=== PATIENT | female | born 1975 | race Caucasian/White ===

== ENCOUNTER 2018-01-09 12:38 | Outpatient (CLI) | payer OTHER ==
[~2018-01-09] VITALS: Ht 172.7 cm; Wt 102.5 kg
[2018-01-09] MEDS ORDERED: BUPR150T9 PO (12:52)
[2018-01-09] MEDS ORDERED: ARIP2TAB3 PO (12:52)
[2018-01-09 12:55] VITALS: BP 114/71
[2018-01-09 13:32] LABS: BASOPHILS % (AUTO) 1 % (0-10); EOSINOPHILS # (AUTO) 0.2 10^3/uL (0.0-0.3); EOSINOPHILS % (AUTO) 3 % (0-10); HEMATOCRIT 37 % (35-52); HEMOGLOBIN 12.5 G/DL (11.5-16.0); LYMPHOCYTES # (AUTO) 1.7 X 10^3 (1.0-4.0); LYMPHOCYTES % (AUTO) 22 % (12-44); MEAN CORPUSCULAR HEMOGLOBIN 30 PG (25-34); MEAN CORPUSCULAR HGB CONC 34 G/DL (32-36); MEAN CORPUSCULAR VOLUME 89 FL (80-99); MEAN PLATELET VOLUME 9.5 FL (7.4-10.4); MONOCYTES # (AUTO) 0.6 X 10^3 (0.0-1.0); MONOCYTES % (AUTO) 7 % (0-12); NEUTROPHILS # (AUTO) 5.2 X 10^3 (1.8-7.8); NEUTROPHILS % (AUTO) 67 % (42-75); PLATELET COUNT 372 10^3/uL (130-400); RED BLOOD COUNT 4.11 10^6/uL (4.35-5.85); RED CELL DISTRIBUTION WIDTH 13.5 % (10.0-14.5); WHITE BLOOD COUNT 7.8 10^3/uL (4.3-11.0)
[2018-01-13] MEDS ORDERED: OXYC-465 PO (13:27)
[2018-01-13] MEDS ORDERED: IBUP-1780 PO (13:27)
[2018-01-13] MEDS ORDERED: DOCU-143 PO (13:27)
== END 2018-01-09 15:47 | disposition home or self-care (01) ==
LOC: PREOP 12:38
PROVIDERS: ATTEND Obstetrics & Gynecology
DX: Z01.812 Encounter for preprocedural laboratory examination (principal); Z11.2 Encounter for screening for other bacterial diseases; N93.8 Other specified abnormal uterine and vaginal bleeding; N92.0 Excessive and frequent menstruation with regular cycle; R10.2 Pelvic and perineal pain; D64.9 Anemia, unspecified; R32 Unspecified urinary incontinence
CPT/HCPCS: 36415; 85025; 86850; 86900; 86901; 87081

== ENCOUNTER 2018-01-13 09:22 | Day surgery (SDC) | payer OTHER ==
[~2018-01-13] VITALS: Ht 172.7 cm; Wt 102.5 kg
[~2018-01-13 09:22] MED LIST: ARIP2TAB3 PO; BUPR150T9 PO
--- OUTSIDE RECORDS SUMMARY | 2018-01-13 09:28 | XMS REPORT | Continuity of Care Document ---
Author Author [facility] Address Unknown Phone Unavailable Allergies Active Description Code Type Severity Reaction Onset Reported/Identified Relationship to Patient Clinical Status Yes No Known Drug Allergies [id number] Drug Allergy Unknown N/A 01/09/2018 Medications There is no data. Problems Date Dx Coded Attending Type Code Diagnosis Diagnosed By 04/03/2008 300.00 AN ANXIETY UNSPEC 04/03/2008 311 MO DEPRESSIVE DISORDER NOS 04/03/2008 300.00 AN ANXIETY UNSPEC 04/03/2008 311 MO DEPRESSIVE DISORDER NOS 04/03/2008 300.00 AN ANXIETY UNSPEC 04/03/2008 311 MO DEPRESSIVE DISORDER NOS 04/03/2008 300.00 AN ANXIETY UNSPEC 04/03/2008 311 MO DEPRESSIVE DISORDER NOS 04/03/2008 JAZMINE ENAMORADO APRN 300.00 AN ANXIETY UNSPEC 04/03/2008 JAZMINE ENAMORADO APRN 311 MO DEPRESSIVE DISORDER NOS 04/03/2008 ADRIANA VALENCIA DO 300.00 AN ANXIETY UNSPEC 04/03/2008 ADRIANA VALENCIA DO 311 MO DEPRESSIVE DISORDER NOS 04/03/2008 300.00 AN ANXIETY UNSPEC 04/03/2008 311 MO DEPRESSIVE DISORDER NOS 04/10/2009 V05.3 HEPATITIS VIRAL/ALL 04/10/2009 V06.4 MMR, MEASLES- MUMPS-RUBELLA VAC 04/10/2009 V05.3 HEPATITIS VIRAL/ALL 04/10/2009 V06.4 MMR, MEASLES- MUMPS-RUBELLA VAC 04/10/2009 V05.3 HEPATITIS VIRAL/ALL 04/10/2009 V06.4 MMR, MEASLES- MUMPS-RUBELLA VAC 04/10/2009 V05.3 HEPATITIS VIRAL/ALL 04/10/2009 V06.4 MMR, MEASLES- MUMPS-RUBELLA VAC 04/10/2009 JAZMINE ENAMORADO APRN V05.3 HEPATITIS VIRAL/ALL 04/10/2009 JAZMINE ENAMORADO APRN V06.4 MMR, YNHYMPC-[id number]-IUBJJCK VAC 04/10/2009 ADRIANA VALENCIA DO V05.3 HEPATITIS VIRAL/ALL 04/10/2009 ADRIANA VALENCIA DO V06.4 MMR, IABMMTC-WCGRR-QNHFEYU VAC 04/10/2009 V05.3 HEPATITIS VIRAL/ALL 04/10/2009 V06.4 MMR, MEASLES- MUMPS-RUBELLA VAC 07/08/2010 789.00 ABDOMINAL PAIN UNSPECIFIED SITE 07/08/2010 789.00 ABDOMINAL PAIN UNSPECIFIED SITE 07/08/2010 789.00 ABDOMINAL PAIN UNSPECIFIED SITE 07/08/2010 789.00 ABDOMINAL PAIN UNSPECIFIED SITE 07/08/2010 JAZMINE ENAMORADO APRN 789.00 ABDOMINAL PAIN UNSPECIFIED SITE 07/08/2010 ADRIANA VALENCIA DO 789.00 ABDOMINAL PAIN UNSPECIFIED SITE 07/08/2010 789.00 ABDOMINAL PAIN UNSPECIFIED SITE 11/27/2010 V72.31 NATUROPATHIC DOCTOR EXAM, ROUTINE 11/27/2010 V72.31 NATUROPATHIC DOCTOR EXAM, ROUTINE 11/27/2010 V72.31 NATUROPATHIC DOCTOR EXAM, ROUTINE 11/27/2010 V72.31 NATUROPATHIC DOCTOR EXAM, ROUTINE 11/27/2010 JAZMINE ENAMORADO APRN V72.31 NATUROPATHIC DOCTOR EXAM, ROUTINE 11/27/2010 ADRIANA VALENCIA DO V72.31 NATUROPATHIC DOCTOR EXAM, ROUTINE 11/27/2010 V72.31 NATUROPATHIC DOCTOR EXAM, ROUTINE 12/21/2010 477.9 RHINITIS 12/21/2010 477.9 RHINITIS 12/21/2010 477.9 RHINITIS 12/21/2010 477.9 RHINITIS 12/21/2010 JAZMINE ENAMORADO APRN 477.9 RHINITIS 12/21/2010 ADRIANA VALENCIA DO 477.9 RHINITIS 12/21/2010 477.9 RHINITIS 03/19/2011 724.4 THORACIC OR LUMBOSACRAL NEURITIS OR RADICULITIS UNSPECIFIED 03/19/2011 724.4 THORACIC OR LUMBOSACRAL NEURITIS OR RADICULITIS UNSPECIFIED 03/19/2011 724.4 THORACIC OR LUMBOSACRAL NEURITIS OR RADICULITIS UNSPECIFIED 03/19/2011 724.4 THORACIC OR LUMBOSACRAL NEURITIS OR RADICULITIS UNSPECIFIED 03/19/2011 JAZMINE ENAMORADO APRN 724.4 THORACIC OR LUMBOSACRAL NEURITIS OR RADICULITIS UNSPECIFIED 03/19/2011 ADRIANA VALENCIA DO 724.4 THORACIC OR LUMBOSACRAL NEURITIS OR RADICULITIS UNSPECIFIED 03/19/2011 724.4 THORACIC OR LUMBOSACRAL NEURITIS OR RADICULITIS UNSPECIFIED 01/26/2012 911.5 INSECT BITE NONVENOMOUS OF TRUNK INFECTED 01/26/2012 911.5 INSECT BITE NONVENOMOUS OF TRUNK INFECTED 01/26/2012 911.5 INSECT BITE NONVENOMOUS OF TRUNK INFECTED 01/26/2012 911.5 INSECT BITE NONVENOMOUS OF TRUNK INFECTED 01/26/2012 JAZMINE ENMAORADO APRN 911.5 INSECT BITE NONVENOMOUS OF TRUNK INFECTED 01/26/2012 ADRIANA VALENCIA DO 911.5 INSECT BITE NONVENOMOUS OF TRUNK INFECTED 01/26/2012 911.5 INSECT BITE NONVENOMOUS OF TRUNK INFECTED 03/01/2012 486 PNEUMONIA ORGANISM UNSPECIFIED 03/01/2012 486 PNEUMONIA ORGANISM UNSPECIFIED 03/01/2012 486 PNEUMONIA ORGANISM UNSPECIFIED 03/01/2012 486 PNEUMONIA ORGANISM UNSPECIFIED 03/01/2012 JAZMINE ENAMORADO APRN 486 PNEUMONIA ORGANISM UNSPECIFIED 03/01/2012 ADRIANA VALENCIA DO 486 PNEUMONIA ORGANISM UNSPECIFIED 03/01/2012 486 PNEUMONIA ORGANISM UNSPECIFIED 10/27/2012 466.0 BRONCHITIS, ACUTE 10/27/2012 724.2 BACK PAIN, LOWER 10/27/2012 466.0 BRONCHITIS, ACUTE 10/27/2012 724.2 BACK PAIN, LOWER 10/27/2012 466.0 BRONCHITIS, ACUTE 10/27/2012 724.2 BACK PAIN, LOWER 10/27/2012 466.0 BRONCHITIS, ACUTE 10/27/2012 724.2 BACK PAIN, LOWER 10/27/2012 JAZMINE ENAMORADO APRN 466.0 BRONCHITIS, ACUTE 10/27/2012 JAZMINE ENAMORADO APRN 724.2 BACK PAIN, LOWER 10/27/2012 ADRIANA VALENCIA DO 466.0 BRONCHITIS, ACUTE 10/27/2012 ADRIANA VALENCIA DO 724.2 BACK PAIN, LOWER 11/01/2012 305.1 TOBACCO ABUSE 11/01/2012 305.1 TOBACCO ABUSE 11/01/2012 305.1 TOBACCO ABUSE 11/01/2012 JAZMINE ENAMORADO APRN 305.1 TOBACCO ABUSE 11/01/2012 ERIK DO ADRIANA Lawrence 305.1 TOBACCO ABUSE 01/06/2013 522.5 PERIAPICAL ABSCESS WITHOUT SINUS 01/06/2013 FEI CABRERAEron JAZMINE Katie 522.5 PERIAPICAL ABSCESS WITHOUT SINUS 01/06/2013 ADRIANA VALENCIA DO K 522.5 PERIAPICAL ABSCESS WITHOUT SINUS 04/13/2014 FEI CABRERANJAZMINE Katie 599.0 URINARY TRACT INFECTION SITE NOT SPECIFIED 04/13/2014 ADRIANA VALENCIA DO Melinda 599.0 URINARY TRACT INFECTION SITE NOT SPECIFIED 08/29/2014 ERIK MERCER ADRIANA Melinda 133.0 SCABIES 01/10/2018 POLLY LAMB MD, Ot D64.9 ANEMIA, UNSPECIFIED 01/10/2018 POLLY LAMB MD, Ot N92.0 EXCESSIVE AND FREQUENT MENSTRUATION WITH 01/10/2018 POLLY LAMB MD, Ot N93.8 OTHER SPECIFIED ABNORMAL UTERINE AND VAG 01/10/2018 POLLY LAMB MD, Ot R10.2 PELVIC AND PERINEAL PAIN 01/10/2018 POLLY LAMB MD, Ot R32 UNSPECIFIED URINARY INCONTINENCE 01/10/2018 POLLY LAMB MD, Ot Z01.812 ENCOUNTER FOR PREPROCEDURAL LABORATORY E 01/10/2018 POLLY LAMB MD, Ot Z11.2 ENCOUNTER FOR SCREENING FOR OTHER BACTER Procedures Code Description [place] [address] UA LONG DIP 04/13/2014 Results Test Result Range Complete blood count (CBC) with automated white blood cell (WBC) differential - 01/09/18 13:15 Blood leukocytes automated count (number/volume) 7.8 10*3/uL 4.3-11.0 Blood erythrocytes automated count (number/volume) 4.11 10*6/uL 4.35-5.85 Venous blood hemoglobin measurement (mass/volume) 12.5 g/dL 11.5-16.0 Blood hematocrit (volume fraction) 37 % 35-52 Automated erythrocyte mean corpuscular volume 89 [foz_us] 80-99 Automated erythrocyte mean corpuscular hemoglobin (mass per erythrocyte) 30 pg 25-34 Automated erythrocyte mean corpuscular hemoglobin concentration measurement ( mass/volume) 34 g/dL 32-36 Automated erythrocyte distribution width ratio 13.5 % 10.0-14.5 Automated blood platelet count (count/volume) 372 10*3/uL 130-400 Automated blood platelet mean volume measurement 9.5 [foz_us] 7.4-10.4 Automated blood neutrophils/100 leukocytes 67 % 42-75 Automated blood lymphocytes/100 leukocytes 22 % 12-44 Blood monocytes/100 leukocytes 7 % 0-12 Automated blood eosinophils/100 leukocytes 3 % 0-10 Automated blood basophils/100 leukocytes 1 % 0-10 Blood neutrophils automated count (number/volume) 5.2 10*3 1.8-7.8 Blood lymphocytes automated count (number/volume) 1.7 10*3 1.0-4.0 Blood monocytes automated count (number/volume) 0.6 10*3 0.0-1.0 Automated eosinophil count 0.2 10*3/uL 0.0-0.3 Automated blood basophil count (count/volume) 0.0 10*3/uL 0.0-0.1 Blood type T Indirect antibody screen panel - 01/09/18 13:15 ABO+Rh group AP NRG Transfusion band number TNP NRG Blood group antibody screen NEGATIVE NRG Methicillin resistant Staphylococcus aureus (MRSA) screening culture - 13:15 Methicillin resistant Staphylococcus aureus (MRSA) screening culture NEG NRG Encounters ACCT No. Visit Date/Time Discharge Status Pt. Type Provider Facility Loc./Unit Complaint [id number] 08/29/2014 11:03:00 08/29/2014 23:59:59 CLS Outpatient ADRIANA VALENCIA DO [id number] 04/13/2014 11:12:00 04/13/2014 23:59:59 CLS Outpatient JAZMINE ENAMORADO APRN [id number] 11/15/2012 15:13:00 11/15/2012 23:59:59 CLS Outpatient [id number] 11/01/2012 15:19:00 11/01/2012 23:59:59 CLS Outpatient [id number] 10/27/2012 09:27:00 10/27/2012 23:59:59 CLS Outpatient [id number] 07/13/2012 13:18:00 07/13/2012 23:59:59 CLS Outpatient [id number] 01/17/2013 09:53:00 Document Registration [id number] 01/09/2018 12:38:00 01/09/2018 15:47:00 DIS Outpatient ADONIS RAE, POLLY Patel [facility] PREOP INCONTINENCE,DUB ,CPP [id number] 01/13/2018 12:00:00 PEN Preadmit ADONIS RAE, POLLY Patel [facility] INCONTINENCE, CPP, DUB
[2018-01-13] MEDS ORDERED: LACTATED RINGERS 1,000 ML IV PRN (09:38)
[2018-01-13] MEDS ORDERED: ceFAZolin 1 GM/NS 100 ML IVPB IV ONE ×2 (10:00)
[2018-01-13] MEDS ORDERED: BUP/EPI 0.5% 1:200,000 (SENSORCAINE) 30 ML VIAL ONE (11:26)
[2018-01-13 11:39] VITALS: BP 111/66
[2018-01-13] MEDS ORDERED: LACTATED RINGERS 0 ML IV ONE (11:39)
[2018-01-13] MEDS ORDERED: ONDANSETRON 4 MG/2 ML (SDV) Z0FRAN ONE ×2 (11:39→14:41)
[2018-01-13] MEDS ORDERED: LIDOCAINE JELLY 2% (XYLOCAINE) 5 ML TUBE ONE (11:39)
[2018-01-13] MEDS ORDERED: ROCURONIUM 10 MG/ML 5 ML SYRINGE IV ONE ×2 (11:39→14:43)
[2018-01-13] MEDS ORDERED: fentaNYL INJECTION 250 MCG/5 ML AMP ONE (11:39)
[2018-01-13] MEDS ORDERED: LIDOCAINE PF 2% 5 ML (XYLOCAINE) VIAL ONE (11:39)
[2018-01-13] MEDS ORDERED: MIDAZOLAM 2 MG/2 ML (VERSED) VIAL ONE (11:39)
[2018-01-13] MEDS ORDERED: proPOfol 200 MG/20 ML (DIPRIVAN) VIAL IV ONE (11:39)
--- NOTE | 2018-01-13 13:23 | Progress Note-Pre Operative ---
Pre-Operative Progress Note H&P Reviewed The H&P was reviewed, patient examined and no changes noted. Date Seen by Provider: January 13, 2018 Time Seen by Provider: 13:23 Date H&P Reviewed: January 13, 2018 Time H&P Reviewed: 13:23 Pre-Operative Diagnosis: Uterovaginal prolapse and stress urinary incontinence POLLY LAMB MD January 13, 2018 1:23 pm
--- NOTE | 2018-01-13 13:24 | Progress Note-Post Operative ---
Post-Operative Progess Note Surgeon (s)/Orbitread Operator (s) Surgeon POLLY LAMB MD Orbitread Operator: [place] Pre-Operative Diagnosis Uterovaginal prolapse and stress urinary incontinence Post-Operative Diagnosis Same with pathology pending Procedure & Operative Findings Date of Procedure 01/13/18 Procedure Performed/Findings DL H with BSO and anterior and posterior vaginal repairs with enterocele repair and Dr. Van performing a PVS and cystoscopy Anesthesia Type GETA Estimated Blood Loss Estimated blood loss (mL): 100cc Specimens/Packing Specimens Removed Uterus tubes and ovaries Packing: Kerlix into the vagina POLLY LAMB MD January 13, 2018 13:24
[2018-01-13] MEDS ORDERED: DOCU-143 PO (13:27)
[2018-01-13] MEDS ORDERED: OXYC-465 PO (13:27)
[2018-01-13] MEDS ORDERED: IBUP-1780 PO (13:27)
--- NOTE | 2018-01-13 13:29 | Discharge Instructions ---
Discharge Instructions Discharge Medications New, Converted or Re-Newed RX: RX on Chart Patient Instructions Patient Instructions: As directed Return to The Hospital For: As directed Activity & Diet Discharge Diet: No Restrictions Activity as Tolerated: No Orders-Post D/C & Referrals Follow Up Appt: Return to clinic on Tuesday, January 16, 2018 at 930 a.m. for staple removal Call to make follow up appt. for patient in 4 weeks. Follow-up with Dr. Van per his instructions Activity: Rest for 24 hours, than as tolerated. Wound Care: May remove Band-Aid tomorrow. Replace as desired. Keep incisions clean and dry. Wash daily with soap and water. Please call in RX to patient pharmacy. Resume all home medications Diet: As tolerated-Clear Liquids only if nauseated. Tomorrow, may shower or tub bathe as desired. No driving for 24 hours, no alcoholic beverages for 24 hours, and nothing per vagina (no tampons, douching, or intercourse) for 8 weeks. Patient to return to the clinic as soon as possible for: Temperature greater than 101F, Severe Pain, Foul discharge from incision or vagina, Excessive Bleeding (more than a period). POLLY LAMB MD January 13, 2018 1:29 pm
[2018-01-13] MEDS ORDERED: MEPERIDINE (DEMEROL) INJ 100 MG/ML IM PRN (13:30)
[2018-01-13] MEDS ORDERED: PROMETHAZINE INJ 25 MG/ML (PHENERGAN) AMP IM PRN (13:30)
[2018-01-13] MEDS ORDERED: BENZOCAINE/MENTHOL (DERMOPLAST) 56 ML CAN TP PRN (13:30)
[2018-01-13] MEDS ORDERED: ONDANSETRON 4 MG/2 ML (SDV) Z0FRAN IVP PRN ×2 (13:30→14:15)
[2018-01-13] MEDS ORDERED: ESTROGENS CONJ IV 25 MG/5 ML (PREMARIN) VIAL IVP ONE (13:30)
[2018-01-13] MEDS ORDERED: WATER (STERILE) FOR INJ 10 ML BTL INJ ONE (13:30)
[2018-01-13] MEDS ORDERED: MEPERIDINE (DEMEROL) INJ 50 MG/ML ONE (14:41)
[2018-01-13] MEDS ORDERED: morphine INJ 10 MG/ML 1ML (SYR OR VIAL) ONE (14:41)
[2018-01-13] MEDS ORDERED: KETOROLAC 30 MG/ML VIAL ONE (14:42)
[2018-01-13] MEDS ORDERED: GLYCOPYRROLATE 0.2 MG/ML (ROBINUL) 2 ML VIAL ONE (14:55)
[2018-01-13] MEDS ORDERED: NEOSTIGMINE 1 MG/ML 5 ML SYRINGE ONE (14:55)
[2018-01-13] MEDS ORDERED: ESTRADIOL VAGINAL CREAM 42.5 GM (ESTRACE) VG ONE (15:17)
--- NOTE | 2018-01-13 15:19 | Progress Note-Post Operative ---
Post-Operative Progess Note Surgeon (s)/Injury/Safety Hazard Assessment (s) Surgeon DONNA GARCIA MD Injury/Safety Hazard Assessment: ADONIS Pre-Operative Diagnosis EDWARDO Post-Operative Diagnosis SAME Procedure & Operative Findings Date of Procedure 01/13/18 Procedure Performed/Findings PVS AND CYSTO Anesthesia Type GENERAL Estimated Blood Loss Estimated blood loss (mL): NEGLIGIBLE Specimens/Packing Specimens Removed N/A Packing: VAG PACK DONNA GARCIA MD January 13, 2018 3:19 pm
[2018-01-13] MEDS: KETOROLAC 30 MG/ML VIAL IVP SCH ×2 (15:50→23:00)
[2018-01-13] MEDS: morphine INJ 10 MG/ML 1ML (SYR OR VIAL) IVP PRN ×2 (15:52→16:18)
[2018-01-13] MEDS: MEPERIDINE (DEMEROL) INJ 50 MG/ML IVP PRN ×2 (15:54→16:04)
[2018-01-13] MEDS ORDERED: SEVOFLURANE (ULTANE) 15 ML INHAL SOLN ONE (16:08)
[2018-01-13] MEDS ORDERED: PROMETHAZINE INJ 25 MG/ML (PHENERGAN) AMP IVP PRN (16:15)
[2018-01-13] MEDS ORDERED: HYDROmorphone 2 MG/ML VIAL (DILAUDID) IVP PRN (16:15)
[2018-01-13] MEDS: D5 LR IV SOLUTION 1,000 ML IV SCH (17:00)
[2018-01-13] MEDS ORDERED: D5 LR IV SOLUTION 1,000 ML IV ONE (17:15)
[2018-01-13 17:36] VITALS: BP 97/56
[2018-01-13 22:30] VITALS: BP 103/57
--- NOTE | 2018-01-13 22:55 | OPERATIVE REPORT ---
DATE OF SERVICE: 01/13/2018 PREOPERATIVE DIAGNOSIS: On my part, stress urinary incontinence. POSTOPERATIVE DIAGNOSIS: On my part, stress urinary incontinence. OPERATION PERFORMED: Pubovaginal sling and cystoscopy. SURGEON: Donna Garcia MD GANG VIBRATOR OPERATOR: Eric Lawton MD ANESTHESIA: General. COMPLICATIONS: None. DESCRIPTION OF PROCEDURE: After Dr. Lawton performed the first part of his surgery that he will dictate, I went ahead and passed the pubovaginal sling Solyx device on both sides using the described technique. The sling was sitting nicely under the mid urethra with no tension, no twisting and passage of a curved hemostat easily between it and the underlying tissue. I removed the James catheter and performed cystoscopy to reconfirm the integrity of the ureter bladder urethra with no foreign body and presence of the sling under the mid urethra. I left the bladder full, removed the cystoscope performed a manual Valsalva maneuver that was negative. I reinserted the James catheter draining clear fluid. Estimated blood loss on my part negligible. The patient tolerated the procedure and anesthesia well and Dr. Lawton proceeded with the rest of his surgery that he will dictate. Job ID: [id number] DocumentID: [id number] Dictated Date: 01/13/2018 15:21:34 Electrical Controls Assembler Date: 01/13/2018 22:55:13 Dictated By: DONNA GARCIA MD
--- NOTE | 2018-01-13 23:45 | OPERATIVE REPORT ---
DATE OF SERVICE: 01/13/2018 PREOPERATIVE DIAGNOSES: Uterovaginal prolapse and stress urinary incontinence as well as chronic pelvic pain and menorrhagia. POSTOPERATIVE DIAGNOSES: Uterovaginal prolapse and stress urinary incontinence as well as chronic pelvic pain and menorrhagia, endometriosis and pathology pending. OPERATIVE PROCEDURE: Total laparoscopic hysterectomy with bilateral salpingo-oophorectomy and then anterior and posterior vaginal repairs with enterocele repair as well as Dr. Bartlett performing a pubovaginal sling and cystoscopy. OPERATIVE DESCRIPTION: With the patient in the supine position under satisfactory general anesthesia, she was repositioned in dorsal lithotomy position in the [facility] and prepped and draped in the usual fashion for abdominal and vaginal surgery. The urinary bladder was drained via James catheter to dependent drainage. A weighted speculum placed in posterior fornix of vagina, cervix was grasped anteriorly with single tooth tenaculum. Uterus sounded to 11.5 cm with uterine sound. The cervix was then serially dilated with Buddy dilators to accommodate a Hoda II manipulator, which was placed with a 6 mm x 8 cm uterine probe and a 30 mm colpotomy ring. Sutures of #1 Vicryl placed at 3 and 9 o'clock position to affix the cervix to the manipulator. The patient brought in low dorsal lithotomy position. A 12 mm incision made 4 cm superior to the umbilicus, 8 mm incision was made 9 cm lateral to the umbilicus. All incision sites were infiltrated with 0.25% Marcaine with epinephrine prior to incision. The Veress needle was placed through the midline incision, correct placement confirmed with a water drop test. The abdomen was insufflated with 2.4 liters of carbon dioxide. Veress needle was removed and a 12 mm Optiview laparoscopic port placed. The abdominal wall transilluminated. Ports of 8 mm were placed through the incisions of those sizes in the lateral abdominal wall. The patient was placed in Trendelenburg allowing the bowel to spill above the pelvis. The da Carlo console was advanced and docked to the patient. The operative instruments were placed and I retired to the console. At the console using the vessel sealer on the right and a bipolar fenestrated grasper on the left, the pelvis was first examined. Both ovaries had what appeared to be a cystadenoma on each, this could be a physiologic cyst. Either way pathology will be pending on the cyst. The tubes evidence of remote tubal sterilization. There was endometriosis implants on the back of the uterus and on the posterior lower uterine segment and on the fallopian tubes and appeared to be on the right ovary as well. The laparoscope was rotated. The appendix was identified. It was a normal vermiform appendix. Both ureters were seemed to peristalse. The intended procedure was initiated by elevating the right tube and ovary and placed in the vessel sealer on the right IP ligament. The ligament was clamped, cauterized and divided that was continued stepwise across the mesovarium on to the round ligament, across the broad ligament and finally down on the cardinal ligament allowing for removal of tube and ovary eventually with the uterus. Same procedure performed on the left with the same result. The anterior lower uterine segment peritoneum was exposed and using a monopolar shear on the right, place of the vessel sealer, the anterior lower uterine segment peritoneum was divided carefully, careful dissection was taken into the vesicovaginal space and then the bladder was dissected down off the lower uterine segment and off of the cervix. The colpotomy incision was started at the 12 o'clock position onto the colpotomy ring. That incision was continued circumferentially until the entire colpotomy ring was exposed, then the uterus with the tubes and ovaries still attached was extracted through the vagina. There were couple pulsatile vessels on the vaginal cuff. These were touched with cautery to effect hemostasis and then the vaginal cuff was closed using two V-Loc barbed suture starting first from the right angle and continuing just past the midpoint of the vaginal cuff ensuring inclusion of the pedicles of the uterine vessels with the closure. Same procedure performed on the left, allowing for complete closure of the cuff in a completely hemostatic manner. The bladder peritoneum was brought back down onto the vaginal cuff with the last couple of stitches on each side. Both ureters were seemed to peristalse before, during and after the procedure was initiated and now with the anterior, the laparoscopic portion of the procedure complete. Both ureters were again seemed to peristalse. The procedure was terminated. The operative instruments removed under direct vision after first irrigating and aspirating the irrigant out of the pelvis. There was no bleeding. There was no abnormal remaining pathology. With the operative instruments removed, the ports were removed under direct vision. The abdomen was evacuated insufflating gas in the process of removing the ports. The skin incisions were closed with renu after closing the fascia at the supraumbilical incision with [id number] suture of 2-0 Vicryl. The patient was now repositioned in the dorsal lithotomy position for the vaginal portion of the repair. A cystocele repair was affected by performing an anterior colporrhaphy placing a weighted speculum in posterior fornix of the vagina. The vagina was anterior was grasped with two Matthew clamps. Incision was made in the midline with Metzenbaum scissors. The vagina was then carefully dissected off of the muscularis of the vagina back to the pubic rami bilaterally. The bladder wall and endopelvic fascia was plicated with 2-0 Vicryl sutures elevating the bladder and lengthening the urethra. At this point, Dr. Bartlett assumed care of the patient for pubovaginal sling and cystoscopy. I remained to assist. Upon completion of Dr. Bartlett's portion of the procedure, which he will dictate, he placed James catheter to dependent drainage. He did comment that the bladder was normal. Both ureters were peristalsing and there was good support of the bladder, no sutures or foreign bodies in the bladder. The redundant anterior vaginal muscularis mucosa was now removed sharply. The vaginal wall was closed with a running lock suture of 3-0 Vicryl Rapide. Good support was evident. The James catheter was left to dependent drainage. Posterior repair was now affected by placing Matthew clamps on the perineum and the hymenal ring at 5 and 7 o'clock position and inverted triangle of skin was removed from the perineal body and upright triangle from the posterior vaginal floor. There was a sinus tract in the posterior fourchette. Careful dissection was taken to undermine and completely remove it intact and that portion of tissue was sent to pathology for inspection. The rectovaginal space was then entered sharply and dissected bluntly to the apex of the vagina where it was explored for an enterocele that being fairly generous when it was reduced and plicated with two sutures of 2-0 Vicryl in a pursestring manner. The rectovaginal space was then obliterated with additional sutures of 2-0 Vicryl and the perineal body restored with additional sutures of the same. Redundant posterior vaginal muscularis mucosa was removed sharply. The vaginal wall was closed with a running lock suture of 3-0 Vicryl Rapide. That closure was continued past the hymenal ring and then the balance of the perineal body was restored and then the suture was brought back up subcutaneous running subcuticular stitch to the hymenal ring where the suture was tied. Digital rectal exam confirmed no stricture or stenosis of the rectum, no sutures into the rectal mucosa. The vagina was inspected for hemostasis, which was complete. Good support was evident. There was no abnormal pathology. The vagina was now filled with Estrace vaginal cream and a pack of Kerlix gauze was placed. Sponge and needle counts were correct at the end of the procedure. Estimated blood loss for the entire procedure was around 100 mL. The patient tolerated the procedure well and was uneventfully awakened from her general anesthesia and transferred to the recovery room in stable condition. Job ID: [id number] DocumentID: [id number] Dictated Date: 01/13/2018 15:40:12 Auto Rental Supervisor Date: 01/13/2018 23:45:01 Dictated By: POLLY LAMB MD
[2018-01-14] MEDS: D5 LR IV SOLUTION 1,000 ML IV SCH (00:48)
[2018-01-14] MEDS: oxyCODONE/APAP 10/325MG (PERCOCET 10) TABLET PO PRN ×2 (03:57→13:30)
[2018-01-14 04:27] VITALS: BP 94/49
[2018-01-14] MEDS: KETOROLAC 30 MG/ML VIAL IVP SCH (06:01)
[2018-01-14 08:00] VITALS: BP 92/56
[2018-01-14] MEDS ORDERED: DOCUSATE SODIUM 100 MG (COLACE) CAP PO SCH (09:00)
[2018-01-14] MEDS ORDERED: ESTRADIOL 1 MG TAB (ESTRACE) PO SCH (09:00)
--- NOTE | 2018-01-14 09:10 | Progress Note-Standard ---
Standard Progress Note Progress Notes/Assess & Plan Date Seen by Provider: January 14, 2018 Time Seen by Provider: 09:09 Progress/Assessment & Plan Patient without complaint. She is ambulating, she is voiding although she has a elevated post-for residual. She has good pain control she denies headache, denies shortness of breath, denies nausea vomiting, denies chest pain. Vital Signs Date Time Temp Pulse Resp B/P (MAP) Pulse Ox O2 Delivery O2 Flow Rate FiO2 01/14/18 04:27 97.8 73 18 94/49 (64) 94 Room Air 01/13/18 22:30 98.2 73 18 103/57 (72) 100 Nasal Cannula 1.00 01/13/18 17:36 96.3 66 16 97/56 (70) 97 Nasal Cannula 4.00 01/13/18 11:39 97.2 73 16 111/66 (81) 100 Room Air I & O 01/14/18 07:00 Intake Total 3300 ml Output Total 1285 ml Balance 2015 ml Vital signs are stable. Patient is afebrile. The abdomen is benign. The surgical incision dressings are clean and dry Extremities show no clubbing cyanosis. There is no Homans sign. Assessment and plan postoperative day number 1 doing well. Plan is for routine convalescence care today with discharge home when evidence of adequate bladder function is demonstrated Final Diagnosis Uterovaginal prolapse and stress urinary incontinence POLLY LAMB MD January 14, 2018 9:10 am
--- NOTE | 2018-01-14 09:46 | Progress Note-Urology ---
Progress Note-Urology Progress Notes/Assess & Plan Progress/Assessment & Plan DOING VERY WELL. VOIDED ON OWN HAS PVR. WE WILL RECHECK AGAIN AND DECIDE NEXT STEP Final Diagnosis DONNA ODEN MD January 14, 2018 9:46 am
[2018-01-14] MEDS ORDERED: ESTR1TAB27 PO (12:02)
[2018-01-14] MEDS ORDERED: IBUPROFEN 800 MG (MOTRIN) TAB PO ONE (13:15)
[2018-01-14 13:30] VITALS: BP 101/63
[2018-01-14] MEDS ORDERED: IBUPROFEN 800 MG (MOTRIN) TAB PO SCH (18:00)
--- NOTE | 2018-01-16 00:43 | Anesthesia-General Post-Op ---
General Patient Condition Mental Status/LOC: Same as Preop Cardiovascular: Satisfactory Nausea/Vomiting: Absent Respiratory: Satisfactory Pain: Controlled Complications: Absent Post Op Complications Complications post date note from 01/14/2018 at 1400 Follow Up Care/Instructions Patient Instructions None needed. Anesthesia/Patient Condition Patient Condition Patient is doing well, no complaints, stable vital signs, no apparent adverse anesthesia problems. No complications reported per nursing. KT DUMONT CRNA January 16, 2018 00:43
== END 2018-01-14 15:00 | disposition home or self-care (01) ==
LOC: SDC 09:22 → WS 16:45 → SDC 01-14 15:00
PROVIDERS: ATTEND Obstetrics & Gynecology
DX: N81.4 Uterovaginal prolapse, unspecified (principal); N39.3 Stress incontinence (female) (male); N92.0 Excessive and frequent menstruation with regular cycle; N83.291 Other ovarian cyst, right side; N80.0 Endometriosis of uterus; D25.1 Intramural leiomyoma of uterus; N94.89 Other specified conditions associated with female genital organs and menstrual cycle; N83.292 Other ovarian cyst, left side; N89.8 Other specified noninflammatory disorders of vagina; F17.210 Nicotine dependence, cigarettes, uncomplicated
CPT/HCPCS: 84703; 86850; 86900; 86901; 88305; 88307; 94664